=== PATIENT | male | born 1980 ===

== ENCOUNTER 2017-05-15 13:49 | Emergency (ER) | payer MEDICAID ==
[~2017-05-15] VITALS: Ht 185.4 cm; Wt 86.2 kg
[2017-05-15] MEDS ORDERED: Tetanus/Diptheria/Pertussis Vaccine 0.5ml Syr IM ONE (14:15)
--- NOTE | 2017-05-15 14:19 | Emergency Room Report ---
History of Present Illness General Chief Complaint: Skin Rash/Abscess Source: Patient Present Illness HPI 36 YO Male presents to the ED c/o itching , red rash to the bilateral lower extremities with "pimples" x 3 days. denies fevers or chills. denies abdominal pain, joint pain. denies increased temperature or swelling of the lower extremities. denies trauma or fall. denies flu-like symptoms, ill contacts, or recent travel. denies swelling of the lips , tongue, or throat. denies oral ulcers, new medications or wheezing. Denies CP, Palpitations, LOC, AMS, dizziness, Changes in Vision, Sensation, paresthesias, or a sudden severe headache. Allergies: Coded Allergies: No Known Allergies (Unverified , 05/15/17) Patient History Past Medical History: see triage record Past Surgical History: none Pertinent Family History: none Immunizations: UTD Reviewed Nursing Documentation: PMH: Agreed, PSxH: Agreed Nursing Documentation-PMH Past Medical History: No Stated History Review of Systems All Other Systems: negative except mentioned in HPI Physical Exam Vital Signs Date Time Temp Pulse Resp B/P Pulse Ox O2 Delivery O2 Flow Rate FiO2 05/15/17 14:04 98.2 83 20 136/76 94 Sp02 EP Interpretation: reviewed, normal General Appearance: no apparent distress, alert, GCS 15, non-toxic Head: normocephalic, atraumatic Eyes: bilateral eye PERRL, bilateral eye normal inspection ENT: hearing grossly normal, normal pharynx, no angioedema, normal voice Neck: full range of motion, supple/symm/no masses Respiratory: lungs clear, normal breath sounds, speaking full sentences Cardiovascular #1: regular rate, rhythm, no edema Genitourinary: no CVA tenderness Musculoskeletal: back normal, gait/station normal, normal range of motion, non- tender, no calf tenderness Neurologic: alert, oriented x3, responsive, motor strength/tone normal, sensory intact, speech normal Psychiatric: judgement/insight normal, memory normal, mood/affect normal Skin: normal color, warm/dry, well hydrated, rash - pustular rash on the bilateral LE's associated with hair follicles, no streaking, vessicles, bullae, or ulcers noted. Lymphatic: no adenopathy Medical Decision Making PA Attestation Dr. etienne is my supervising Physician whom patient management has been discussed with. Diagnostic Impression: Primary Impression: Folliculitis ER Course 36 YO Male presents to the ED c/o itching , red rash to the bilateral lower extremities with "pimples" x 3 days. denies fevers or chills. denies abdominal pain, joint pain. denies increased temperature or swelling of the lower extremities. denies trauma or fall. denies flu-like symptoms, ill contacts, or recent travel. denies swelling of the lips , tongue, or throat. denies oral ulcers, new medications or wheezing. Denies CP, Palpitations, LOC, AMS, dizziness, Changes in Vision, Sensation, paresthesias, or a sudden severe headache. Ddx considered but are not limited to cellulitis, folliculitis, scabies, viral exanthem Vital signs: are WNL, pt. is afebrile H&PE are most consistent with Folliculitis ORDERS: none required at this time, the diagnosis is clinical ED INTERVENTIONS: None required at this time. DISCHARGE: At this time pt. is stable for d/c to home. Will provide printed patient care instructions, and any necessary prescriptions. Care plan and follow up instructions have been discussed with the patient prior to discharge. Last Vital Signs Date Time Temp Pulse Resp B/P Pulse Ox O2 Delivery O2 Flow Rate FiO2 05/15/17 14:04 98.2 83 20 136/76 94 Disposition: HOME, SELF-CARE Condition: Stable Scripts Hydrocortisone (Hydrocortisone Cream 2.5%) Y Cream.appl 1 APPLIC TP BID, #28.3 GM Prov: Mary Grace [email or web address].Gisele 05/15/17 Diphenhydramine Hcl* (BENADRYL*) 25 Mg Capsule 25 MG ORAL Q6H Y for Itching, #20 CAP Prov: Mary Grace Becerra.AÁngel 05/15/17 Cephalexin* (KEFLEX*) 500 Mg Capsule 500 MG ORAL EVERY 12 HOURS for 10 Days, #20 CAP 0 Refills Prov: Mary Grace [email or web address].Gisele 05/15/17 Patient Instructions: Folliculitis Additional Instructions: Take medications as directed. Follow up with a Primary Care Provider in 3-5 days, even if your symptoms have resolved. --Please review list of primary care clinics, if you do not already have a primary care provider Return sooner to ED if new symptoms occur, or current symptoms become worse. Do not drink alcohol, drive, or operate heavy machinery while taking Benadryl as this may cause drowsiness. - Please note that this Emergency Department Report was dictated using [employer] and fire dispatcher technology software, occasionally this can lead to erroneous entry secondary to interpretation by the dictation equipment. Mary Grace Becerra May 15, 2017 14:19
[2017-05-15] MEDS ORDERED: BENADRYL25 MG ORAL (14:21)
[2017-05-15] MEDS ORDERED: HYDROCORTISONE30 G2 TP (14:21)
[2017-05-15] MEDS ORDERED: CEPHALEXIN500 MG ORAL (14:21)
[2017-05-15 14:55] VITALS: BP 121/76
== END 2017-05-15 14:55 | disposition home or self-care (01) ==
LOC: EMR 14:41
DX: L73.9 Follicular disorder, unspecified (principal)
CPT/HCPCS: 90471; 90715; 99284